=== PATIENT | female | born 1985 | race Caucasian/White ===

== ENCOUNTER → 2021-01-10 15:56 | Outpatient (CLI) | payer OTHER, SELFPAY ==
[2021-01-10 16:52] LABS: COVID19 -Nasal RAPID Negative (Negative)
== END ==
PROVIDERS: Visit Provider Nurse Practitioner
DX: Z20.822 Contact with and (suspected) exposure to COVID-19 (principal); J31.2 Chronic pharyngitis
CPT/HCPCS: 87070; 87147; 87635